=== PATIENT | female | born 1990 | race Caucasian/White ===

== ENCOUNTER 2017-05-30 10:44 | Emergency (ER) | payer OTHER, SELFPAY ==
--- NOTE | 2017-05-30 10:57 | EDM.PDOC ---
ED HPI GENERAL MEDICAL PROBLEM - General Chief Complaint: Lower Extremity Injury/Pain Stated Complaint: RIGHT ANKLE PAIN Time Seen by Provider: 05/30/17 10:55 - History of Present Illness INITIAL COMMENTS - FREE TEXT/NARRATIVE: HISTORY AND PHYSICAL: History of present illness: Patient is a 26-year-old white female who presents with a concern of acute right ankle injury that occurred yesterday while playing softball she denies other trauma or concern Review of systems: As per history of present illness and below otherwise all systems reviewed and negative. Past medical history: As per history of present illness and as reviewed below otherwise noncontributory. Surgical history: As per history of present illness and as reviewed below otherwise noncontributory. Social history: No reported history of drug or alcohol abuse. Family history: As per history of present illness and as reviewed below otherwise noncontributory. Physical exam: HEENT: Atraumatic, normocephalic, pupils reactive, negative for conjunctival pallor or scleral icterus, mucous membranes moist, throat clear, neck supple, nontender, trachea midline. Lungs: Clear to auscultation, breath sounds equal bilaterally, chest nontender. Heart: S1S2, regular, negative for clicks, rubs, or JVD. Abdomen: Soft, nondistended, nontender. Negative for masses or hepatosplenomegaly. Negative for costovertebral tenderness. Pelvis: Stable nontender. Genitourinary: Deferred. Rectal: Deferred. Extremities: Patient has moderate swelling and tenderness of the right ankle greatest in the region of the lateral malleolus Achilles tendon is normal with no proximal fibular tenderness EMS neurovascular is unremarkable Neuro: Awake, alert, oriented. Cranial nerves II through XII unremarkable. Cerebellum unremarkable. Motor and sensory unremarkable throughout. Exam nonfocal. Diagnostics: X-ray right ankle Therapeutics: To be determined Impression: #1 acute right ankle injury Definitive disposition and diagnosis as appropriate pending reevaluation and review of above. - Related Data Allergies Allergy/AdvReac Type Severity Reaction Status Date / Time No Known Allergies Allergy Verified 09/20/15 13:18 Home Meds: Home Meds Control 05/30/17 [History] Past Medical History - Past Health History Medical/Surgical History: Denies Medical/Surgical History Social & Family History - Tobacco Use Smoking Status *Q: Never Smoker Second Hand Smoke Exposure: No - Recreational Drug Use Recreational Drug Use: No Review of Systems - Review of Systems Review Of Systems: ROS reveals no pertinent complaints other than HPI. ED EXAM, GENERAL - Physical Exam Exam: See Below (See dictation) Course - Vital Signs Last Recorded V/S: Last Vital Signs Temp 36.5 C 05/30/17 10:55 Pulse 73 05/30/17 10:55 Resp 18 05/30/17 10:55 BP 118/79 05/30/17 10:55 Pulse Ox 97 05/30/17 10:55 - Orders/Labs/Meds Orders: Active Orders 24 hr Category Date Time Status Ankle Min 3V Rt [CR] Stat Exams 05/30/17 10:55 Taken Departure - Departure Time of Disposition: 11:41 Disposition: Home, Self-Care 01 Condition: Good Clinical Impression: Ankle fracture - Discharge Information Forms: ED Department Discharge Additional Instructions: The following information is given to patients seen in the emergency department who are being discharged to home. This information is to outline your options for follow-up care. We provide all patients seen in our emergency department with a follow-up referral. The need for follow-up, as well as the timing and circumstances, are variable depending upon the specifics of your emergency department visit. If you don't have a primary care physician on staff, we will provide you with a referral. We always advise you to contact your personal physician following an emergency department visit to inform them of the circumstance of the visit and for follow-up with them and/or the need for any referrals to a consulting specialist. The emergency department will also refer you to a specialist when appropriate. This referral assures that you have the opportunity for followup care with a specialist. All of these measure are taken in an effort to provide you with optimal care, which includes your followup. Under all circumstances we always encourage you to contact your private physician who remains a resource for coordinating your care. When calling for followup care, please make the office aware that this follow-up is from your recent emergency room visit. If for any reason you are refused follow-up, please contact the [facility] emergency department at and asked to speak to the emergency department charge nurse. [facility] [address], [address] [place] [address] Follow-up 9 AM tomorrow with orthopedic surgery hydrocodone as prescribed posterior mold and crutches as directed return as needed as discussed - My Orders Last 24 Hours: My Active Orders 05/30/17 10:55 Ankle Min 3V Rt [CR] Stat - Assessment/Plan Last 24 Hours: My Active Orders 05/30/17 10:55 Ankle Min 3V Rt [CR] Stat
[2017-05-30 11:15] VITALS: BP 118/79
--- NOTE | 2017-05-30 11:52 | CR ---
EXAMINATION: Right ankle HISTORY: Pain COMPARISON: None TECHNIQUE: 3 views FINDINGS: There is a nondisplaced oblique distal fibular fracture identified with widening of the me dial aspect of the ankle mortise. The talar dome appears intact. The remaining osseous structures an d joint spaces are preserved. Mild overlying soft tissue swelling. Small plantar calcaneal spur. IMPRESSION: 1. Oblique distal fibular fracture with widening of the ankle mortise.
== END 2017-05-30 11:59 | disposition home or self-care (01) ==
LOC: MW.ED 10:44
DX: S82.434A Nondisplaced oblique fracture of shaft of right fibula, initial encounter for closed fracture (principal); X58.XXXA Exposure to other specified factors, initial encounter; Y93.64 Activity, baseball
CPT/HCPCS: 73610-26-RT; 73610-RT; 99282; 99283

== ENCOUNTER 2017-06-05 10:09 | Day surgery (SDC) | payer OTHER, SELFPAY ==
[~2017-06-05 10:09] MED LIST: Acetaminophen/HYDROcodone 325-10 MG Tab PO PRN; Lactated Ringers 1,000 ML IV SCH; ceFAZolin 2 GM in Premix Bag 1 BAG IV SCH
[2017-06-05] MEDS ORDERED: HYDROmorphone 2 MG/ML Syringe ONE (11:18)
[2017-06-05] MEDS ORDERED: fentaNYL 100 MCG/2 ML SDV ONE (11:18)
[2017-06-05] MEDS ORDERED: Lidocaine 2% 5 ML SDV ONE (11:18)
[2017-06-05] MEDS ORDERED: Propofol 200 MG/20 ML SDV ONE (11:18)
[2017-06-05] MEDS ORDERED: Ondansetron 4 MG/2 ML SDV ONE (11:18)
[2017-06-05] MEDS ORDERED: Midazolam 1 MG/ML 2 ML SDV ONE (11:18)
--- NOTE | 2017-06-05 11:29 | PCM.PREANE ---
Preanesthetic Assessment - Procedure Proposed Procedure: ORIF of right ankle fracture - Anesthesia/Transfusion/Family Hx Anesthesia History: Prior Anesthesia Without Reaction Family History of Anesthesia Reaction: No Transfusion History: No Prior Transfusion(s) Intubation History: Unknown - Review of Systems General: No Symptoms Pulmonary: No Symptoms Cardiovascular: No Symptoms Gastrointestinal: Other (occasional heartburn) Neurological: No Symptoms, Gait Disturbance (due to cast of right ankle with fracture) Other: Reports: None - Physical Assessment NPO Status Date: 06/04/17 NPO Status Time: 23:00 O2 Sat by Pulse Oximetry: 98 Respiratory Rate: 16 Vital Signs: Last Vital Signs Temp 97.7 F 06/05/17 11:09 Pulse 66 06/05/17 11:09 Resp 16 06/05/17 11:09 BP 128/70 06/05/17 11:09 Pulse Ox 98 06/05/17 11:09 Height: 5 ft 8 in Weight: 180 lb ASA Class: 2 Mental Status: Alert & Oriented x3 Airway Class: Mallampati = 1 Dentition: Reports: Normal Dentition Thyro-Mental Finger Breadths: 4 Mouth Opening Finger Breadths: 3 ROM/Head Extension: Full Lungs: Clear to auscultation, Normal respiratory effort Cardiovascular: Regular Rate, Regular Rhythm, No Murmurs - Lab Values: Laboratory Last Values Urine HCG, Qual NEGATIVE (NEGATIVE) 06/05/17 10:14 - Allergies Allergies/Adverse Reactions: Allergies Allergy/AdvReac Type Severity Reaction Status Date / Time No Known Allergies Allergy Verified 09/20/15 13:18 - Blood Blood Available: No Product(s) Available: None - Acknowledgements Anesthesia Type Planned: General Anesthesia (LMA) Pt an Appropriate Candidate for the Planned Anesthesia: Yes Alternatives and Risks of Anesthesia Discussed w Pt/Guardian: Yes Pt/Guardian Understands and Agrees with Anesthesia Plan: Yes PreAnesthesia Questionnaire - Past Health History Medical/Surgical History: Denies Medical/Surgical History HEENT History: Reports: Other (See Below) Other HEENT History: wears glasses/contacts Gastrointestinal History: Reports: Other (See Below) Other Gastrointestinal History: occasional heartburn Immunologic History: Dermatologic History: Reports: Other (See Below) Other Dermatologic History: hx MRSA; resolved by repeat negative swabs since. - Past Surgical History Head Surgeries/Procedures: Reports: None HEENT Surgical History: Reports: Oral Surgery Other HEENT Surgeries/Procedures: wisdom teeth extraction, surgery for repair of lip - SUBSTANCE USE Smoking Status *Q: Never Smoker Second Hand Smoke Exposure: No Recreational Drug Use History: No - HOME MEDS Home Medications: Home Meds Hydrocodone/Acetaminophen [Lorane 7.5-325 Tablet] 1 tab PO ASDIRECTED PRN [History] traMADol [Ultram] 50 ng PO ASDIRECTED PRN 06/01/17 [History] - CURRENT (IN HOUSE) MEDS Current Meds: Current Medications Hydrocodone Bitart/Acetaminophen (Lorane 325-10 Mg) 1 - 2 tab PO Q4H PRN PRN Reason: Pain Lactated Ringer's (Ringers, Lactated) 1,000 mls @ 100 mls/hr IV ASDIRECTED [facility] Last Admin: 06/05/17 11:09 Dose: 100 mls/hr Cefazolin Sodium/Dextrose 2 gm (/ Premix) 50 mls @ 100 mls/hr IV ONCALL [facility] Discontinued Medications Fentanyl (Sublimaze) Confirm Administered Dose 100 mcg .ROUTE .STK-MED ONE Stop: 06/05/17 11:19 Hydromorphone HCl (Dilaudid) Confirm Administered Dose 2 mg .ROUTE .STK-MED ONE Stop: 06/05/17 11:19 Lidocaine (Xylocaine-Mpf 2%) Confirm Administered Dose 5 ml .ROUTE .STK-MED ONE Stop: 06/05/17 11:19 Midazolam HCl (Versed 1 Mg/Ml) Confirm Administered Dose 2 mg .ROUTE .STK-MED ONE Stop: 06/05/17 11:19 Ondansetron HCl (Zofran) Confirm Administered Dose 4 mg .ROUTE .STK-MED ONE Stop: 06/05/17 11:19 Propofol (Diprivan 20 Ml) Confirm Administered Dose 200 mg .ROUTE .STK-MED ONE Stop: 06/05/17 11:19
[2017-06-05] MEDS ORDERED: Ketorolac 30 MG/ML SDV ONE (12:20)
--- NOTE | 2017-06-05 13:21 | PCM.OPNOTE ---
- General Post-Op/Procedure Note Date of Surgery/Procedure: 06/05/17 Operative Procedure(s): ORIF R distal fibula with repair of syndesmosis Post-Op Diagnosis: R distal fibula fracture. R syndesmotic ankle injury Anesthesia Technique: General ET Tube Primary Surgeon: Silvina Bell Privacy Officer: Shannan Marquez in mLs: 5 Condition: Good Free Text/Narrative:: tt=39 min #[id number]
[2017-06-05] MEDS: fentaNYL 100 MCG/2 ML SDV IVPUSH PRN ×5 (13:40→14:10)
--- NOTE | 2017-06-05 14:30 | PCM.POSTAN ---
POST ANESTHESIA ASSESSMENT - MENTAL STATUS Mental Status: alert, oriented - RESPIRATORY Respiratory Status: respiratory rate WNL, airway patent, O2 saturation stable - CARDIOVASCULAR CV Status: pulse rate WNL, blood pressure stable - GASTROINTESTINAL GI Status: no symptoms - PAIN Pain Score: 3 - POST OP HYDRATION Hydration Status: adequate & stable
[2017-06-05 15:39] VITALS: BP 121/76
--- NOTE | 2017-06-05 15:40 | PCM48HPAN ---
Post Anesthesia Note - EVALUATION WITHIN 48HRS OF ANESTHETIC Vital Signs in Normal Range: Yes Patient Participated in Evaluation: Yes Respiratory Function Stable: Yes Airway Patent: Yes Cardiovascular Function Stable: Yes Hydration Status Stable: Yes Pain Control Satisfactory: Yes Nausea and Vomiting Control Satisfactory: Yes Mental Status Recovered: Yes
--- NOTE | 2017-06-05 16:27 | CR ---
EXAMINATION: Right ankle HISTORY: Surgery COMPARISON: 05/30/2017 TECHNIQUE: 6 fluoroscopic images provided FINDINGS/IMPRESSION: Operative control films demonstrate screw and plate fixation of a distal fibula r fracture with placement of a syndesmotic anchor.
--- NOTE | 2017-06-05 21:25 | OR ---
SURGEON: Silvina Bell MD DATE OF PROCEDURE: 06/05/2017 PREOPERATIVE DIAGNOSIS: Right distal fibula fracture, unstable. POSTOPERATIVE DIAGNOSIS: 1. Right distal fibula fracture, unstable. 2. Right ankle syndesmotic injury. PROCEDURE: Open reduction and internal fixation of right distal fibula with open repair of syndesmosis. FELT FINISHER: Shannan Marquez PA-C. ANESTHESIA: General. ESTIMATED BLOOD LOSS: 5 mL. TOURNIQUET TIME: 39 minutes. COMPLICATIONS: None. DVT PROPHYLAXIS: None indicated. IMPLANTS USED: Anibal 7-hole 1/3 semitubular plate with combination of 3.5 mm and 4.0 mm nonlocking screws and one Arthrex ankle TightRope fixation system for syndesmosis. BRIEF HISTORY: Katelin is a 26-year-old female, who injured her right ankle. X-ray showed a Velasquez C fracture of the distal fibula with widening of the ankle mortise. Due to the unstable nature of her injury, I did recommend surgical intervention. The risks and goals of procedure were discussed with the patient and documented preoperatively. She agreed to proceed. DESCRIPTION OF PROCEDURE: The patient was properly identified and brought to the operating room. She was transferred from the OR cart and placed on the operating table in supine position. General anesthesia was administered. After adequate anesthesia was obtained, a well-padded tourniquet was applied to the right lower extremity. The right lower extremity was then prepped in standard fashion using ChloraPrep solution. It was then sterilely draped. A time-out was performed to ensure correct site and procedure. Preoperative antibiotics were given. The surgical site had been marked preoperatively. An Esmarch was used to exsanguinate the right lower extremity and the tourniquet was inflated to 250 mmHg. An incision was made over the lateral aspect of the right distal fibula. The subcutaneous tissues were dissected. I did look for the superficial peroneal nerve. However, this was not encountered. The fracture was visualized. The periosteum was cleared from around the fracture ends. The fracture site was opened and copiously irrigated with saline solution to remove the fracture hematoma. The fracture was then reduced. It appeared to gallardo in anatomically. It was held in a reduced position with bone clamps. A 3.5 mm interfragmentary screw was then placed in standard lag fashion. This provided good provisional fixation of the fracture. A 7-hole plate was then placed. A 4.0 mm nonlocking screws were used distally and 3.5 mm cortical screws, nonlocking were used proximally. This provided good reduction of the distal fibula. C-arm imaging confirmed adequate reduction of the distal fibula with mu-ism of fibular length. The ankle mortise was then stressed with an external rotation force. This showed widening of the ankle syndesmosis with no tibia/fibula overlap. I elected to proceed with fixation of the syndesmosis. A large periarticular clamp was placed over the distal fibula and medial malleolus. The ankle was held in a nearly neutral position as the clamp was tightened. A 3.5 mm drill bit was then used through four cortices starting at the distal fibula. The Arthrex ankle TightRope fixation system was then passed. The EndoButton was deployed along the medial cortex of the tibia and traction was pulled. The EndoButton sat nicely against the medial cortex of the tibia. The TightRope was then tightened. Knots were also placed for additional fixation. The periarticular clamp was then removed. The ankle was again imaged using an external rotation stress view. This showed no further motion at the syndesmosis and there was adequate tibia/fibula overlap. There continued to be some slight depression of the talus with the external rotation in a plantar flexed position consistent with a deltoid injury. I was able to restore the ankle mortise with the ankle held in dorsiflexion. Final C-arm images confirmed acceptable reduction of the fracture with acceptable hardware position. There was a large butterfly fragment that extended proximally. I felt that we had adequate fixation of the fracture and I only used one screw proximal to this fragment as there was good fixation of the remainder of the fracture. The wound was then copiously irrigated with saline solution. The deep tissues were closed with 0 Vicryl. The tourniquet was deflated. No excess bleeding was noted. The subcutaneous tissues were closed with 2-0 Monocryl and the skin was closed with gin. Xeroform gauze was placed over the wound and a bulky dressing was applied. She was then placed into a well-padded posterior splint with medial and lateral stabilizing slabs, keeping the foot in a dorsiflexed position. She was awakened from her anesthetic without difficulty. She was transferred back to the operating room cart and brought to recovery room in stable condition. All needle and sponge counts were correct. CHINYERE / SNOW /[id number]
== END 2017-06-05 15:59 | disposition home or self-care (01) ==
LOC: MW.SDS 10:09
PROVIDERS: ATTEND Orthopaedic Surgery
PROC: 0QSJ04Z Reposition Right Fibula with Internal Fixation Device, Open Approach (ICD-10-PCS; principal; 2017-06-05)
DX: S82.431A Displaced oblique fracture of shaft of right fibula, initial encounter for closed fracture (principal); S99.811A Other specified injuries of right ankle, initial encounter; Y93.64 Activity, baseball; Z86.14 Personal history of Methicillin resistant Staphylococcus aureus infection; Z98.890 Other specified postprocedural states
CPT/HCPCS: 27792; 76000; 81025; A9270; C1713; J0690; J1170; J1885; J2250; J2405; J3010; J7120; 01480; J2704

== ENCOUNTER 2017-07-26 21:47 | Emergency (ER) | payer MEDICAID, OTHER, SELFPAY ==
--- NOTE | 2017-07-26 22:21 | EDM.PDOC ---
ED HPI GENERAL MEDICAL PROBLEM - General Chief Complaint: Lower Extremity Injury/Pain Stated Complaint: RT ANKEL INFECTION Time Seen by Provider: 07/26/17 21:55 - History of Present Illness INITIAL COMMENTS - FREE TEXT/NARRATIVE: HISTORY AND PHYSICAL: History of present illness: Patient's a 26-year-old white female with recent ORIF of her right ankle and concern about possible infection she states she's had multiple symptoms over last week and is worried about infection these include headache visual disturbance paresthesia tactile fevers no vomiting no diarrhea no other concern Review of systems: As per history of present illness and below otherwise all systems reviewed and negative. Past medical history: As per history of present illness and as reviewed below otherwise noncontributory. Surgical history: As per history of present illness and as reviewed below otherwise noncontributory. Social history: No reported history of drug or alcohol abuse. Family history: As per history of present illness and as reviewed below otherwise noncontributory. Physical exam: HEENT: Atraumatic, normocephalic, pupils reactive, negative for conjunctival pallor or scleral icterus, mucous membranes moist, throat clear, neck supple, nontender, trachea midline. Lungs: Clear to auscultation, breath sounds equal bilaterally, chest nontender. Heart: S1S2, regular, negative for clicks, rubs, or JVD. Abdomen: Soft, nondistended, nontender. Negative for masses or hepatosplenomegaly. Negative for costovertebral tenderness. Pelvis: Stable nontender. Genitourinary: Deferred. Rectal: Deferred. Extremities: Patient has some swelling to her right distal leg her surgical wound is without erythema or warmth discharge there is no fluctuance or induration seen is a neurovascular exam is unremarkable Neuro: Awake, alert, oriented. Cranial nerves II through XII unremarkable. Cerebellum unremarkable. Motor and sensory unremarkable throughout. Exam nonfocal. Diagnostics: CBC CMP blood culture 2 lactic acid ESR CRP x-ray right ankle Therapeutics: To be determined Impression: #1 medical screening exam #2 history of ORIF right ankle Definitive disposition and diagnosis as appropriate pending reevaluation and review of above. - Related Data Allergies Allergy/AdvReac Type Severity Reaction Status Date / Time No Known Allergies Allergy Verified 07/26/17 22:03 Home Meds: Home Meds Acetaminophen/HYDROcodone [[place] 325-10 MG] 1 - 2 tab PO Q4H PRN #80 tablet [Rx] traMADol [Ultram] 50 mg PO ASDIRECTED PRN #0 06/05/17 [Rx] Past Medical History - Past Health History Medical/Surgical History: Denies Medical/Surgical History HEENT History: Reports: Other (See Below) Other HEENT History: wears glasses/contacts Gastrointestinal History: Reports: Other (See Below) Other Gastrointestinal History: occasional heartburn Immunologic History: Dermatologic History: Reports: Other (See Below) Other Dermatologic History: hx MRSA; resolved by repeat negative swabs since. - Past Surgical History Head Surgeries/Procedures: Reports: None HEENT Surgical History: Reports: Oral Surgery Other HEENT Surgeries/Procedures: wisdom teeth extraction, surgery for repair of lip Social & Family History - Family History Family Medical History: Noncontributory - Tobacco Use Smoking Status *Q: Never Smoker Second Hand Smoke Exposure: No - Recreational Drug Use Recreational Drug Use: No Review of Systems - Review of Systems Review Of Systems: ROS reveals no pertinent complaints other than HPI. ED EXAM, GENERAL - Physical Exam Exam: See Below (See dictation) Course - Vital Signs Last Recorded V/S: Last Vital Signs Temp 36.3 C 07/26/17 22:05 Pulse 82 07/26/17 22:05 Resp 18 07/26/17 22:05 BP 140/88 07/26/17 22:05 Pulse Ox 98 07/26/17 22:05 - Orders/Labs/Meds Orders: Active Orders 24 hr Category Date Time Status Ankle Min 3V Rt [CR] Stat Exams 07/26/17 22:12 Taken CULTURE BLOOD [BC] Stat Lab 07/26/17 22:26 Received CULTURE BLOOD [BC] Stat Lab 07/26/17 22:47 Received Labs: Laboratory Tests 07/26/17 07/26/17 07/26/17 Range/Units 22:26 22:26 22:26 WBC 8.91 (4.0-11.0) K/uL RBC 4.55 (4.30-5.90) M/uL Hgb 13.0 (12.0-16.0) g/dL Hct 39.5 (36.0-46.0) % MCV 86.8 (80.0-98.0) fL MCH 28.6 (27.0-32.0) pg MCHC 32.9 (31.0-37.0) g/dL RDW Std Deviation 41.8 (28.0-62.0) fl RDW Coeff of Stacey 13 (11.0-15.0) % Plt Count 279 (150-400) K/uL MPV 9.70 (7.40-12.00) fL Neut % (Auto) 61.5 (48.0-80.0) % Lymph % (Auto) 29.1 (16.0-40.0) % Dillon % (Auto) 7.6 (0.0-15.0) % Eos % (Auto) 1.6 (0.0-7.0) % Baso % (Auto) 0.2 (0.0-1.5) % Neut # (Auto) 5.5 (1.4-5.7) K/uL Lymph # (Auto) 2.6 H (0.6-2.4) K/uL Dillon # (Auto) 0.7 (0.0-0.8) K/uL Eos # (Auto) 0.1 (0.0-0.7) K/uL Baso # (Auto) 0.0 (0.0-0.1) K/uL Nucleated RBC % 0.0 /100WBC Nucleated RBCs # 0 K/uL ESR 22 H (0-19) mm/hr Lactate 0.9 (0.20-2.00) mmol/L Sodium 138 (136-146) mmol/L Potassium 4.0 (3.5-5.1) mmol/L Chloride 107 (98-110) mmol/L Carbon Dioxide 24 (21-31) mmol/L BUN 8 (6.0-23.0) mg/dL Creatinine 0.8 (0.6-1.5) mg/dL Est Cr Clr Drug Dosing 106.98 mL/min Estimated GFR (MDRD) > 60.0 ml/min Glucose 88 (60-110) mg/dL Calcium 9.1 (8.8-10.8) mg/dL Total Bilirubin 0.3 (0.1-1.5) mg/dL AST 16 (5-40) IU/L ALT 16 (8-54) IU/L Alkaline Phosphatase 82 (40-150) C-Reactive Protein (0.0-0.5) mg/dL Total Protein 7.5 (6.0-8.0) g/dL Albumin 3.9 (3.5-5.0) g/dL Globulin 3.6 H (2.0-3.5) g/dL Albumin/Globulin Ratio 1.1 L (1.3-2.8) 07/26/17 Range/Units 22:26 WBC (4.0-11.0) K/uL RBC (4.30-5.90) M/uL Hgb (12.0-16.0) g/dL Hct (36.0-46.0) % MCV (80.0-98.0) fL MCH (27.0-32.0) pg MCHC (31.0-37.0) g/dL RDW Std Deviation (28.0-62.0) fl RDW Coeff of Stacey (11.0-15.0) % Plt Count (150-400) K/uL MPV (7.40-12.00) fL Neut % (Auto) (48.0-80.0) % Lymph % (Auto) (16.0-40.0) % Dillon % (Auto) (0.0-15.0) % Eos % (Auto) (0.0-7.0) % Baso % (Auto) (0.0-1.5) % Neut # (Auto) (1.4-5.7) K/uL Lymph # (Auto) (0.6-2.4) K/uL Dillon # (Auto) (0.0-0.8) K/uL Eos # (Auto) (0.0-0.7) K/uL Baso # (Auto) (0.0-0.1) K/uL Nucleated RBC % /100WBC Nucleated RBCs # K/uL ESR (0-19) mm/hr Lactate (0.20-2.00) mmol/L Sodium (136-146) mmol/L Potassium (3.5-5.1) mmol/L Chloride (98-110) mmol/L Carbon Dioxide (21-31) mmol/L BUN (6.0-23.0) mg/dL Creatinine (0.6-1.5) mg/dL Est Cr Clr Drug Dosing mL/min Estimated GFR (MDRD) ml/min Glucose (60-110) mg/dL Calcium (8.8-10.8) mg/dL Total Bilirubin (0.1-1.5) mg/dL AST (5-40) IU/L ALT (8-54) IU/L Alkaline Phosphatase (40-150) C-Reactive Protein 1.56 H (0.0-0.5) mg/dL Total Protein (6.0-8.0) g/dL Albumin (3.5-5.0) g/dL Globulin (2.0-3.5) g/dL Albumin/Globulin Ratio (1.3-2.8) Departure - Departure Time of Disposition: 00:08 Disposition: Home, Self-Care 01 Condition: Good Clinical Impression: History of open reduction and internal fixation (ORIF) procedure, Encounter for medical screening examination - Discharge Information Referrals: PCP,None [Primary Care Provider] - Forms: ED Department Discharge Additional Instructions: The following information is given to patients seen in the emergency department who are being discharged to home. This information is to outline your options for follow-up care. We provide all patients seen in our emergency department with a follow-up referral. The need for follow-up, as well as the timing and circumstances, are variable depending upon the specifics of your emergency department visit. If you don't have a primary care physician on staff, we will provide you with a referral. We always advise you to contact your personal physician following an emergency department visit to inform them of the circumstance of the visit and for follow-up with them and/or the need for any referrals to a consulting specialist. The emergency department will also refer you to a specialist when appropriate. This referral assures that you have the opportunity for followup care with a specialist. All of these measure are taken in an effort to provide you with optimal care, which includes your followup. Under all circumstances we always encourage you to contact your private physician who remains a resource for coordinating your care. When calling for followup care, please make the office aware that this follow-up is from your recent emergency room visit. If for any reason you are refused follow-up, please contact the [facility] emergency department at and asked to speak to the emergency department charge nurse. [facility] Professional [address], [address] [place] [address] Follow-up with orthopedic surgery return as needed as discussed - My Orders Last 24 Hours: My Active Orders 07/26/17 22:12 Ankle Min 3V Rt [CR] Stat 07/26/17 22:26 CULTURE BLOOD [BC] Stat 07/26/17 22:47 CULTURE BLOOD [BC] Stat - Assessment/Plan Last 24 Hours: My Active Orders 07/26/17 22:12 Ankle Min 3V Rt [CR] Stat 07/26/17 22:26 CULTURE BLOOD [BC] Stat 07/26/17 22:47 CULTURE BLOOD [BC] Stat
[2017-07-26 22:56] LABS: CHLORIDE,CL 107 mmol/L (98-110); SODIUM,NA 138 mmol/L (136-146)
[2017-07-27 00:49] VITALS: BP 120/71
--- NOTE | 2017-07-27 17:12 | CR ---
EXAM DATE: 07/26/17 PATIENT'S AGE: 26 Patient: RAJ MARTIN Facility: [place], [place] Site . Site : 1990 Study: XRay Extremity ankle [id number]/6/2017 10:49:40 PM Ordering Physician: Kieran Salmon Final Report: INDICATION: Swelling. Possible infection. TECHNIQUE: Three views of the right ankle. COMPARISON: 07/11/2017. IMPRESSION: Status post ORIF of a distal fibula fracture with distal syndesmosis fixation. The hardware is stable in position. No fracture is seen. No perihardware lucencies to suggest hardware loosening or infection. No osteolytic changes to suggest osteomyelitis. Dictated by Alexey Lane MD @ 07/26/2017 11:24:32 PM Dictated by: Alexey Lane MD @ 07/26/2017 23:24:39 (Electronic Signature) Report Signed by Proxy. JUAN FRANCISCO
== END 2017-07-27 00:20 | disposition home or self-care (01) ==
LOC: MW.ED 21:47
DX: Z13.9 Encounter for screening, unspecified (principal); Z87.81 Personal history of (healed) traumatic fracture
CPT/HCPCS: 36415; 73610-26-RT; 73610-RT; 80053; 83605; 85025; 85652; 86140; 87040; 99282; 99283

== ENCOUNTER 2019-07-17 06:32 | Day surgery (SDC) | payer BC ==
[~2019-07-17 06:32] MED LIST changes: -Acetaminophen/HYDROcodone 325-10 MG Tab PO PRN; -ceFAZolin 2 GM in Premix Bag 1 BAG IV SCH
--- NOTE | 2019-07-17 07:00 | PCM.PREANE ---
Preanesthetic Assessment - Anesthesia/Transfusion/Family Hx Anesthesia History: Prior Anesthesia Without Reaction Family History of Anesthesia Reaction: No Transfusion History: No Prior Transfusion(s) Intubation History: Unknown - Review of Systems General: No Symptoms Pulmonary: No Symptoms Cardiovascular: No Symptoms Gastrointestinal: No Symptoms Neurological: No Symptoms Other: Reports: None - Physical Assessment Height: 5 ft 8 in Weight: 104.326 kg ASA Class: 2 Mental Status: Alert & Oriented x3 Airway Class: Mallampati = 2 Dentition: Reports: Normal Dentition Thyro-Mental Finger Breadths: 3 Mouth Opening Finger Breadths: 3 ROM/Head Extension: Full Lungs: Clear to Auscultation, Normal Respiratory Effort Cardiovascular: Regular Rate, Regular Rhythm - Lab Values: Laboratory Last Values Urine HCG, Qual NEGATIVE (NEGATIVE) 07/17/19 06:30 - Allergies Allergies/Adverse Reactions: Allergies Allergy/AdvReac Type Severity Reaction Status Date / Time No Known Allergies Allergy Verified 07/12/19 08:16 - Blood Blood Available: No - Anesthesia Plan Pre-Op Medication Ordered: None - Acknowledgements Anesthesia Type Planned: General Anesthesia Pt an Appropriate Candidate for the Planned Anesthesia: Yes Alternatives and Risks of Anesthesia Discussed w Pt/Guardian: Yes Pt/Guardian Understands and Agrees with Anesthesia Plan: Yes PreAnesthesia Questionnaire - Past Health History Medical/Surgical History: Denies Medical/Surgical History HEENT History: Reports: Impaired Vision Other HEENT History: wears glasses/contacts Cardiovascular History: Reports: None Respiratory History: Reports: None Gastrointestinal History: Reports: None Genitourinary History: Reports: None Musculoskeletal History: Reports: Fracture Neurological History: Reports: None Psychiatric History: Reports: None Endocrine/Metabolic History: Reports: Obesity/BMI 30+ Hematologic History: Reports: None Immunologic History: Reports: None Oncologic (Cancer) History: Reports: None Dermatologic History: Reports: Other (See Below) Other Dermatologic History: hx MRSA; resolved by repeat negative swabs since. - Infectious Disease History Infectious Disease History: Reports: MRSA - Past Surgical History Head Surgeries/Procedures: Reports: None HEENT Surgical History: Reports: Oral Surgery Other HEENT Surgeries/Procedures: wisdom teeth extraction, surgery for repair of lip Cardiovascular Surgical History: Reports: None Respiratory Surgical History: Reports: None GI Surgical History: Reports: None Female Surgical History: Reports: None Endocrine Surgical History: Reports: None Neurological Surgical History: Reports: None Musculoskeletal Surgical History: Reports: ORIF Other Musculoskeletal Surgeries/Procedures:: ORIF rt Ankle Oncologic Surgical History: Reports: None Dermatological Surgical History: Reports: None - SUBSTANCE USE Smoking Status *Q: Never Smoker Recreational Drug Use History: No - HOME MEDS Home Medications: Home Meds Norethindrone-Ethinyl Estrad [Aranelle] 1 tab PO DAILY 12/05/17 [History] - CURRENT (IN HOUSE) MEDS Current Meds: Current Medications Hydrocodone Bitart/Acetaminophen ([place] 325-5 Mg) 1 - 2 tab PO Q4H PRN PRN Reason: Pain Cefazolin Sodium/Dextrose 2 gm (/ Premix) 50 mls @ 100 mls/hr IV ONCALL JOHN Lactated Ringer's (Ringers, Lactated) 1,000 mls @ 100 mls/hr IV ASDIRECTED JOHN
[2019-07-17] MEDS ORDERED: fentaNYL 100 MCG/2 ML SDV ONE (07:29)
[2019-07-17] MEDS ORDERED: Dexamethasone 4 MG/ML 5 ML MDV ONE (07:29)
[2019-07-17] MEDS ORDERED: Ondansetron 4 MG/2 ML SDV ONE (07:29)
[2019-07-17] MEDS ORDERED: Glycopyrrolate 0.2 MG/ML SDV ONE (07:29)
[2019-07-17] MEDS ORDERED: Propofol 200 MG/20 ML SDV ONE (07:29)
[2019-07-17] MEDS ORDERED: Ketorolac 30 MG/ML SDV ONE (07:29)
[2019-07-17] MEDS ORDERED: Midazolam 1 MG/ML 2 ML SDV ONE (07:29)
[2019-07-17] MEDS ORDERED: Lidocaine 2% 5 ML SDV ONE (07:29)
[2019-07-17] MEDS ORDERED: ceFAZolin 1 GM Vial ONE (07:36)
[2019-07-17] MEDS ORDERED: Sodium Chloride 0.9% 20 ML ONE (07:36)
[2019-07-17] MEDS ORDERED: Bupivacaine 0.5% 30 ML SDV ONE (07:38)
[2019-07-17] MEDS ORDERED: Acetaminophen/HYDROcodone 325-5 MG Tab PO PRN (08:00)
[2019-07-17] MEDS ORDERED: ceFAZolin 2 GM in Premix Bag 1 BAG IV SCH (08:00)
[2019-07-17] MEDS ORDERED: fentaNYL 100 MCG/2 ML SDV IVPUSH PRN ×2 (08:37→09:11)
--- NOTE | 2019-07-17 08:59 | PCM.OPNOTE ---
- General Post-Op/Procedure Note Date of Surgery/Procedure: 07/17/19 Operative Procedure(s): HWR right ankle Post-Op Diagnosis: Painful retained HW right ankle Anesthesia Technique: General LMA Primary Surgeon: Silvina Bell Gasoline Truck Operator: Vida Clark in mLs: 5 Condition: Good Free Text/Narrative:: tt=14 min #[id number]
[2019-07-17] MEDS ORDERED: HYDROmorphone 2 MG/ML Syringe IVPUSH ONE (09:12)
--- NOTE | 2019-07-17 09:48 | PCM.POSTAN ---
POST ANESTHESIA ASSESSMENT - MENTAL STATUS Mental Status: Alert, Oriented - VITAL SIGNS Vital Signs: Last Vital Signs Temp 96 C H 07/17/19 09:04 Pulse 59 L 07/17/19 09:29 Resp 18 07/17/19 09:29 BP 111/65 07/17/19 09:29 Pulse Ox 95 07/17/19 09:29 - RESPIRATORY Respiratory Status: Respiratory Rate WNL, Airway Patent, O2 Saturation Stable - CARDIOVASCULAR CV Status: Pulse Rate WNL, Blood Pressure Stable - GASTROINTESTINAL GI Status: No Symptoms - PAIN Pain Score: 3 - POST OP HYDRATION Hydration Status: Adequate & Stable - OBSERVATIONS Free Text/Narrative:: no anesthesia problems
[2019-07-17 10:02] VITALS: BP 128/77
--- NOTE | 2019-07-17 10:17 | PCM48HPAN ---
Post Anesthesia Note - EVALUATION WITHIN 48HRS OF ANESTHETIC Vital Signs in Normal Range: Yes Patient Participated in Evaluation: Yes Respiratory Function Stable: Yes Airway Patent: Yes Cardiovascular Function Stable: Yes Hydration Status Stable: Yes Pain Control Satisfactory: Yes Nausea and Vomiting Control Satisfactory: Yes Mental Status Recovered: Yes Vital Signs: Last Vital Signs Temp 36.4 C 07/17/19 09:41 Pulse 59 L 07/17/19 09:56 Resp 16 07/17/19 09:56 BP 128/77 07/17/19 09:56 Pulse Ox 96 07/17/19 09:56 - COMMENTS/OBSERVATIONS Free Text/Narrative:: no anesthesia problems
--- NOTE | 2019-07-17 14:25 | OR ---
SURGEON: Silvina Bell MD DATE OF PROCEDURE: 07/17/2019 PREOPERATIVE DIAGNOSIS: Painful retained hardware, right ankle. POSTOPERATIVE DIAGNOSIS: Painful retained hardware, right ankle. PROCEDURE: Hardware removal, right ankle (deep implant). PRIMARY SURGEON: Silvina Bell MD. PRODUCTION LAPPING MACHINE OPERATOR: Vida Clark PA-C. ANESTHESIA: General. ESTIMATED BLOOD LOSS: 5 mL. TOURNIQUET TIME: 14 minutes. COMPLICATIONS: None. DVT PROPHYLAXIS: None indicated. IMPLANTS USED: None. BRIEF HISTORY: Katelin is a 28-year-old female who previously underwent open reduction and internal fixation of the right distal fibula with repair of syndesmosis. She went on to heal the fracture well. She continued to be bothered by persistent pain over the distal fibula hardware. Due to her lack of response to conservative treatment, I did recommend surgical intervention. The risks and goals of procedure were discussed with the patient and were documented preoperatively. She agreed to proceed. DESCRIPTION OF PROCEDURE: The patient was properly identified and brought to the operating room. She was transferred from the OR cart, placed on operating room table in supine position. General anesthesia was administered. After adequate anesthesia was obtained, a well-padded tourniquet was applied to the right lower extremity. The right lower extremity was then prepped in standard fashion using ChloraPrep solution. It was then sterilely draped. A time-out was performed to ensure correct site and procedure. Preoperative antibiotics were given. The surgical site had been marked preoperatively. An Esmarch was used to exsanguinate the right lower extremity and the tourniquet was inflated to 250 mmHg. Incision was made over the site of the previous incision. Subcutaneous tissues were dissected. Care was taken to look for the superficial peroneal nerve and this was not encountered. The hardware was then identified. The screws were removed from the plate without difficulty. The interfragmentary screw was also removed. I did remove the lateral TightRope button and a portion of the FiberWire was also removed. The plate was then removed without difficulty. The wound was copiously irrigated with saline solution. C-arm imaging was used to confirm removal of the hardware. I elected to keep the small medial button from the TightRope in place as it did lie directly over the bone and was not causing her any symptoms preoperatively. The deep layers were then closed with 0 Vicryl. The tourniquet was deflated. No excess bleeding was noted. Subcutaneous tissues were closed with 2-0 Monocryl and the skin was closed with gin. Xeroform gauze was placed over the wound and a bulky dressing was applied. She was awakened from her anesthetic and transferred back to the operating room cart. She was brought to recovery room in stable condition. All needle and sponge counts were correct. CHINYERE / SNOW /[id number]
--- NOTE | 2019-07-17 16:56 | CR ---
COMPARISON: None available. FINDINGS: Intraoperative fluoroscopic support provided the orthopedic service. A single AP view of the presumed right ankle demonstrates a single residual metallic orthopedic button at the medial malleolus. Ghost tracts from prior fixation screws in the distal fibula and tibia are identified. The ankle mortise appears intact. A total of 1 seconds of fluoroscopy time was utilized. Please see the operative note for additional details. Dictated by Francis Martin MD @ Jul 17 2019 4:53PM Signed by Dr. Francis Martin @ Jul 17 2019 4:54PM
== END 2019-07-17 10:25 | disposition home or self-care (01) ==
LOC: MW.SDS 06:32
PROVIDERS: ATTEND Orthopaedic Surgery
DX: T84.84XA Pain due to internal orthopedic prosthetic devices, implants and grafts, initial encounter (principal); E66.9 Obesity, unspecified; Z68.34 Body mass index [BMI] 34.0-34.9, adult; Z79.899 Other long term (current) drug therapy; Z98.890 Other specified postprocedural states
CPT/HCPCS: 20680; 76000; 81025; J0690; J1100; J1885; J2001; J2250; J2405; J2704; J3010; J3490; J7120